=== PATIENT | female | born 1995 ===

== ENCOUNTER 2024-06-04 18:50 | Inpatient (IN) | payer BC ==
[~2024-06-04] VITALS: Ht 170.2 cm; Wt 72.7 kg
[2024-06-04 19:19] VITALS: BP 110/63
[2024-06-04] MEDS ORDERED: Carboprost Tromethamine 250 MCG/ML 1ML Amp IM PRN (19:25)
[2024-06-04] MEDS ORDERED: Oxytocin 10 Unit / ML Vial IM PRN (19:25)
[2024-06-04] MEDS ORDERED: Lactated Ringer's 1,000 ML IV PRN ×4 (19:25→20:45)
[2024-06-04] MEDS ORDERED: Misoprostol 200 MCG Tab BC PRN (19:25)
[2024-06-04] MEDS ORDERED: Misoprostol 200 MCG Tab PR PRN (19:25)
[2024-06-04] MEDS ORDERED: Ondansetron HCl 2 MG / ML 2ML Vial IV PRN (19:25)
[2024-06-04] MEDS ORDERED: Acetaminophen 500 MG Tab PO PRN (19:25)
[2024-06-04] MEDS ORDERED: OXYTOCIN/RINGER'S LACTATE 500 ML IV PRN (19:25)
[2024-06-04] MEDS ORDERED: Methylergonovine Maleate 0.2MG / ML 1ML Amp IM PRN (19:25)
[2024-06-04] MEDS ORDERED: OXYTOCIN/RINGER'S LACTATE 500 ML IV SCH ×2 (19:35→20:40)
[2024-06-04] MEDS ORDERED: ePHEDrine Sulfate 50 MG/ML 1ML Injection XX PRN (19:35)
[2024-06-04] MEDS ORDERED: FentaNYL 2mcg/ml-Bup 0.1% Epd 250 ML EPI PRN (19:35)
[2024-06-04] MEDS ORDERED: Lactated Ringer's 1,000 ML IV SCH ×3 (19:35)
[2024-06-04] MEDS ORDERED: Tranexamic Acid 100 ML IV SCH (19:45)
[2024-06-04 19:55] LABS: BASOPHILS ABSOLUTE AUTO 0.09 K/mm3 (0.00-0.23); BASOPHILS PERCENT AUTO 1 % (0-2); EOSINOPHILS ABSOLUTE AUTO 0.22 K/mm3 (0.00-0.68); EOSINOPHILS PERCENT AUTO 2 % (0-6); Hematocrit 36.1 % (33.0-51.0); Hemoglobin 12.7 g/dL (11.5-16.0); IMMATURE GRAN ABSOLUTE AUTO 0.55 K/mm3 (0.00-0.10); IMMATURE GRAN PERCENT AUTO 4 % (0-1); LYMPHOCYTES ABSOLUTE AUTO 1.85 K/mm3 (0.84-5.20); LYMPHOCYTES PERCENT AUTO 14 % (21-46); MONOCYTES ABSOLUTE AUTO 1.21 K/mm3 (0.16-1.47); MONOCYTES PERCENT AUTO 9 % (4-13); Mean Corpuscular HGB 32.2 pg (26.0-34.0); Mean Corpuscular HGB Conc 35.2 g/dL (31.5-36.5); Mean Corpuscular Volume 92 fL (80-100); Mean Platelet Volume 10.2 fL (9.1-12.4); NEUTROPHILS ABSOLUTE AUTO 9.18 K/mm3 (1.96-9.15); NEUTROPHILS PERCENT AUTO 70 % (41-73); Platelet Count 149 K/mm3 (150-400); RDW Coefficient Variation 13.2 % (11.7-14.2); RDW Standard Deviation 43.8 fL (35.1-46.3); Red Blood Cell Count 3.94 M/mm3 (3.80-5.20)
[2024-06-04] MEDS ORDERED: Misoprostol 25 MCG Tab PO SCH (20:00)
[2024-06-04] MEDS ORDERED: Misoprostol 25 MCG Tab VAG SCH (20:00)
[2024-06-04] MEDS ORDERED: PRENATAL TABLE1 EAC2 PO (20:19)
[2024-06-04] MEDS ORDERED: FentaNYL Citrate 50 MCG/ML 2 ML Injection IV PRN (20:20)
[2024-06-04 20:25] VITALS: BP 116/64
[2024-06-04] MEDS ORDERED: Calcium Carbonate 500 MG Tab Chew PO PRN (20:25)
[2024-06-04] MEDS ORDERED: DiphenhydrAMINE HCl 50 MG Cap PO PRN (20:25)
[2024-06-04] MEDS ORDERED: Zolpidem Tartrate 5 MG Tab PO PRN (20:25)
[2024-06-04 20:41] VITALS: BP 108/62
[2024-06-04 20:55] VITALS: BP 104/62
[2024-06-04 21:10] VITALS: BP 107/68
[2024-06-05] VITALS (49 sets, daily range): BP systolic 85–118; BP diastolic 49–72
[2024-06-06] VITALS (13 sets, daily range): BP systolic 103–117; BP diastolic 54–71
[2024-06-06] MEDS ORDERED: Ketorolac Tromethamine 30mg Vial IV PRN (00:35)
[2024-06-06] MEDS ORDERED: OXYTOCIN/RINGER'S LACTATE 500 ML IV SCH (00:35)
[2024-06-06] MEDS ORDERED: Lactated Ringer's 1,000 ML IV SCH (00:35)
[2024-06-06] MEDS ORDERED: OxyCODONE 5 mg/Acetamin 325 mg TABLET PO PRN (00:40)
[2024-06-06] MEDS ORDERED: Misoprostol 100 MCG Tab PO PRN (00:40)
[2024-06-06] MEDS ORDERED: Docusate Sodium 100 MG Cap PO PRN (00:40)
[2024-06-06] MEDS ORDERED: Diphth,Pertuss(Acell),Tet Vac 0.5 ML VIAL IM SCH (00:40)
[2024-06-06] MEDS ORDERED: Benzocaine Topical Anesthetic Spray 60GM TOP PRN (00:40)
[2024-06-06] MEDS ORDERED: Methylergonovine Maleate 0.2MG / ML 1ML Amp IM PRN (00:40)
[2024-06-06] MEDS ORDERED: Witch Hazel/Glycerin PADS TOP PRN (00:40)
[2024-06-06] MEDS ORDERED: FLU VACC TS2024-25(6MOS UP)/PF 45 MCG/0.5 ML SYRINGE IM SCH (00:40)
[2024-06-06] MEDS ORDERED: Lanolin Cream TOP PRN (00:45)
[2024-06-06] MEDS ORDERED: Ibuprofen 400 MG Tab PO PRN (00:45)
[2024-06-06 05:50] LABS: Hematocrit 34.4 % (33.0-51.0); Hemoglobin 12.2 g/dL (11.5-16.0); Mean Corpuscular HGB 32.1 pg (26.0-34.0); Mean Corpuscular HGB Conc 35.5 g/dL (31.5-36.5); Mean Corpuscular Volume 91 fL (80-100); Mean Platelet Volume 10.3 fL (9.1-12.4); Platelet Count 170 K/mm3 (150-400); RDW Coefficient Variation 13.2 % (11.7-14.2); RDW Standard Deviation 43.3 fL (35.1-46.3); White Blood Cell Count 22.59 K/mm3 (4.00-11.30)
[2024-06-06] MEDS ORDERED: Prenatal Vit/FE Fumarate/FA 1 Tab PO SCH (09:00)
[2024-06-06 11:56] LABS: Hematocrit 33.9 % (33.0-51.0); Hemoglobin 11.7 g/dL (11.5-16.0); Mean Corpuscular HGB 31.8 pg (26.0-34.0); Mean Corpuscular HGB Conc 34.5 g/dL (31.5-36.5); Mean Corpuscular Volume 92 fL (80-100); Mean Platelet Volume 10.5 fL (9.1-12.4); Platelet Count 163 K/mm3 (150-400); RDW Coefficient Variation 13.2 % (11.7-14.2); RDW Standard Deviation 44.1 fL (35.1-46.3); Red Blood Cell Count 3.68 M/mm3 (3.80-5.20); White Blood Cell Count 19.22 K/mm3 (4.00-11.30)
[2024-06-07 05:53] VITALS: BP 96/51
[2024-06-07 08:30] VITALS: BP 108/58
== END 2024-06-07 09:55 | disposition home or self-care (01) | DRG 807 ==
LOC: OBS 18:50 → BC 18:53 → OBS 19:00 → BC 19:00
PROVIDERS: ADMIT Advanced Practice Midwife
PROC: 10E0XZZ Delivery of Products of Conception, External Approach (ICD-10-PCS; principal; 2024-06-05)
PROC: 0KQM0ZZ Repair Perineum Muscle, Open Approach (ICD-10-PCS; 2024-06-05)
PROC: 10907ZC Drainage of Amniotic Fluid, Therapeutic from Products of Conception, Via Natural or Artificial Opening (ICD-10-PCS; 2024-06-05)
PROC: 3E0R3BZ Introduction of Anesthetic Agent into Spinal Canal, Percutaneous Approach (ICD-10-PCS; 2024-06-05)
PROC: 00HU33Z Insertion of Infusion Device into Spinal Canal, Percutaneous Approach (ICD-10-PCS; 2024-06-05)
DX: O48.0 Post-term pregnancy (principal); Z37.0 Single live birth; O69.81X0 Labor and delivery complicated by cord around neck, without compression, not applicable or unspecified; Z3A.41 41 weeks gestation of pregnancy; O70.1 Second degree perineal laceration during delivery
CPT/HCPCS: 36415; 51702; 85025; 85027; 86850; 86900; 86901; A9270; J1885; J2590; J3010; J7120

== ENCOUNTER 2025-08-06 17:03 | Emergency (ER) | payer BC ==
[~2025-08-06] VITALS: Ht 170.2 cm; Wt 59.0 kg
[~2025-08-06 17:03] MED LIST: PRENATAL TABLE1 EAC2 PO
[2025-08-06 18:25] LABS: BASOPHILS ABSOLUTE AUTO 0.07 K/mm3 (0.00-0.23); BASOPHILS PERCENT AUTO 1 % (0-2); EOSINOPHILS ABSOLUTE AUTO 0.14 K/mm3 (0.00-0.68); EOSINOPHILS PERCENT AUTO 1 % (0-6); Hematocrit 41.2 % (33.0-51.0); Hemoglobin 14.6 g/dL (11.5-16.0); IMMATURE GRAN ABSOLUTE AUTO 0.07 K/mm3 (0.00-0.10); IMMATURE GRAN PERCENT AUTO 1 % (0-1); LYMPHOCYTES ABSOLUTE AUTO 3.25 K/mm3 (0.84-5.20); LYMPHOCYTES PERCENT AUTO 28 % (21-46); MONOCYTES ABSOLUTE AUTO 0.68 K/mm3 (0.16-1.47); MONOCYTES PERCENT AUTO 6 % (4-13); Mean Corpuscular HGB Conc 35.4 g/dL (31.5-36.5); Mean Corpuscular Volume 87 fL (80-100); NEUTROPHILS ABSOLUTE AUTO 7.46 K/mm3 (1.96-9.15); NEUTROPHILS PERCENT AUTO 64 % (41-73); NRBC ABSOLUTE 0.00 K/mm3 (0.00-0.02); NRBC Auto 0.0 /100 WBC (0.0-0.2); Platelet Count 222 K/mm3 (150-400); RDW Coefficient Variation 12.7 % (11.7-14.2); RDW Standard Deviation 39.6 fL (35.1-46.3)
[2025-08-06 19:01] LABS: Alanine Aminotransfer (ALT/SGP 18.0 U/L (12-78); Albumin, Blood 4.3 g/dL (3.4-5.0); Anion Gap 9.0 mmol/L (3-11); Aspartate Aminotrans (AST/SGOT 12.0 U/L (12-37); Bilirubin, Total 0.7 mg/dL (0.1-1.0); Blood Urea Nitrogen 12.0 mg/dL (8-24); CO2, Blood 24.0 mmol/L (21-32); Calcium, Blood 9.1 mg/dL (8.5-10.1); Chloride, Blood 105.0 mmol/L (98-108); Creatinine, Blood 0.66 mg/dL (0.40-1.00); Glucose, Blood 89.0 mg/dL (70-99); Potassium, Blood 3.5 mmol/L (3.5-5.5); Sodium, Blood 134.0 mmol/L (136-145)
[2025-08-06 19:05] LABS: Source, Urine Clean Catch
[2025-08-06 19:24] LABS: Bilirubin, Urine Neg (Neg); Color, Urine Yellow (P-Yellow); Glucose Qualitative, Urine Neg (Neg); Ketones, Urine 4+ (Neg); Leukocyte Esterase, Urine Neg (Neg); Protein, Urine 1+ (Neg); Specific Gravity, Urine 1.025 (1.003-1.022); Urobilinogen, Urine NORM (Normal)
[2025-08-06 19:33] LABS: Albumin/Globulin Ratio 1.1 (0.8-1.8); Globulin, Blood 3.8 g/dL (2.2-4.0); Total Protein, Blood 8.1 g/dL (6.4-8.2)
[2025-08-06 19:45] LABS: White Blood Cells, Urine 0-2 /hpf (0-5)
== END 2025-08-06 20:02 | disposition home or self-care (01) ==
LOC: ER 17:03
PROVIDERS: Student in an Organized Health Care Education/Training Program
DX: O20.0 Threatened abortion (principal); Z3A.11 11 weeks gestation of pregnancy
CPT/HCPCS: 76801; 80053; 81001; 84702; 85025; 87086; 99284-25